=== PATIENT | female | born 1985 | race Caucasian/White ===

== ENCOUNTER 2016-08-14 18:31 | Emergency (ER) | payer OTHER ==
--- NOTE | 2016-08-14 19:14 | ED NURSING NOTES ---
Clinical Report - Nurses [facility] [address] [place] [address] 08/14/2016 18:35 Patient: DELICIA MIGUEL TRIAGE Triage time 18:47. Acuity: LEVEL 3. Chief Complaint: COUGH and "HURTS ALL OVER" (Tested pos for flu A, earlier today at [facility]. Three kids also sick. Went home and got dizzy, felt needed to be seen again). Alert. No acute distress. SEPSIS SCREEN: Sepsis Screen: negative. Negative (no infection suspected/documented). --18:53 Steph Reynolds R.N. 18:47 08/14/16. BP: 114/48. HR: 67. RR: 18. O2 saturation: 100%. Temp: 98.6 F. Pain level now: 02/08. --18:53 Steph Reynolds R.N. 18:47 08/14/16. BP: 114/48. HR: 67. RR: 18. O2 saturation: 100%. Temp: 98.6 F. Pain level now: 02/08. --18:53 Steph Reynolds R.N. Weight: 54.4 kg stated. Height/Length: 65 inches Per Patient. BMI: 20. --18:51 Steph Reynolds R.N. Medications None. --18:50 Steph Reynolds R.N. Medication/allergy information source: the patient. --18:53 Steph Reynolds R.N. Allergies Vicodin, itchy, ringing in ears . --18:50 Steph Reynolds R.N. History Arrived by private vehicle. Historian: patient and family. Accompanied by family. Primary physician (robert). This started yesterday. She has had a nasal discharge, chest congestion and fatigue. Reports muscle aches. ( cough). Treatment RESIDENTIAL APPRAISER: None. PAST MEDICAL HX: Negative. Immunizations: status is unknown. Last normal menstrual period- 5 years ago. SURGERY HX: Appendectomy. Tubal ligation. ( ablation of uturis). SOCIAL HX: Light tobacco smoker (cigarette)- less than 1/2 a pack per day. No alcohol use or drug use. FALL RISK ASSESSMENT: Fall risk assessment completed. No fall risk identified. NUTRITIONAL RISK ASSESSMENT: The nutritional risk assessment revealed no deficiencies. FUNCTIONAL ASSESSMENT: Functional assessment: no impairments noted. LEARNING NEEDS ASSESSMENT: The learning needs assessment revealed no barriers. SKIN INTEGRITY ASSESSMENT: Skin integrity risk assessment completed. No skin integrity risk identified. --18:53 Steph Reynolds R.N. Interventions ID band on patient. To room. --18:53 Steph Reynolds R.N. PHYSICAL ASSESSMENT Ambulatory to room. Patient gowned. GENERAL / NEURO / PSYCH: Alert. Oriented X 4. Appears in no acute distress. HEENT: Voice within normal limits. Mucous membranes are pink. RESPIRATORY: Respirations not labored. CVS: Capillary refill less than 2 seconds. SKIN: Skin is warm and dry. Normal skin turgor. --18:54 Steph Reynolds R.N. NURSING PROGRESS NOTES Patient gowned. Head of bed elevated. Two patient identifiers checked. Call light placed in reach. Side rails up x 1. Bed placed in lowest position. Brakes of bed on. Patient ready for evaluation. --18:54 Steph Reynolds R.N. 19:11 08/14/2016 Oxycodone-APAP (Oxycodone-Acetaminophen) PO 5/325 mg Tablets 1 tab given. Allergies verified, confirmed 5 rights and sedative warning given to the patient. --19:16 Steph Reynolds R.N. DISPOSITION / DISCHARGE 19:22. Condition at departure: improved. No learning barriers present. Discharge instructions provided and reviewed with the patient. Reviewed medication(s) side effects, precautions, dosing and course information. Prescription(s) given to the patient. Work note given. Patient verbalized understanding. Written instructions provided in Bur[place]ian. The patient was discharged home and accompanied by spouse. She left the Emergency Department ambulatory and via private vehicle. Spouse driving. Medication list reviewed and validated. --19:27 Steph Reynolds R.N. 18:47 08/14/16. BP: 114/48. HR: 67. RR: 18. O2 saturation: 100%. Temp: 98.6 F. Pain level now: 02/08. --19:27 Reynolds, Steph, R.N. Locked/Released at 08/14/2016 19:27 by Steph Reynolds R.N.
--- NOTE | 2016-08-14 19:14 | ED ORDER SUMMARY ---
..... Patient: DELICIA MIGUEL OrderSheet [facility] VisitID: [id number] [place] [address] 30y, F Registration Date/Time: 08/14/2016 ORDER SHEET Weight: 54.4 kg (stated) Allergies: Vicodin, itchy, ringing in ears GENERAL ORDERS: MEDICATION ORDERS: Oxycodone-APAP PO 5/325 mg (HIGH ALERT MEDICATION, NOW) (19:13 08/14/2016 HBivens A.R.N.P.) (19:16 Sabra R.N.) IV FLUIDS: ORDER SHEET NOTES: [Electronically signed by Steph Reynolds R.N. (19:08/14/2016)] [Electronically signed by Marina AndujarR.N.P. (20:08/14/2016)] [Electronically locked/signed by Steph Reynolds R.N. (19:08/14/2016)]
--- NOTE | 2016-08-14 19:14 | ED ORDER SUMMARY ---
..... Patient: DELICIA MIGUEL OrderSheet [facility] VisitID: [id number] [place] [address] 30y, F Registration Date/Time: 08/14/2016 ORDER SHEET Weight: 54.4 kg (stated) Allergies: Vicodin, itchy, ringing in ears GENERAL ORDERS: MEDICATION ORDERS: Oxycodone-APAP PO 5/325 mg (HIGH ALERT MEDICATION, NOW) (19:13 08/14/2016 HBivens A.R.N.P.) (19:16 Sabra R.N.) IV FLUIDS: ORDER SHEET NOTES: [Electronically signed by Steph Reynolds R.N. (19:08/14/2016)] [Electronically signed by Marina AndujarR.N.P. (20:08/14/2016)] [Electronically locked/signed by Steph Reynolds R.N. (19:08/14/2016)]
--- NOTE | 2016-08-14 19:14 | ED NURSING NOTES ---
Clinical Report - Nurses [facility] [address] [place] [address] 08/14/2016 18:35 Patient: DELICIA MIGUEL TRIAGE Triage time 18:47. Acuity: LEVEL 3. Chief Complaint: COUGH and "HURTS ALL OVER" (Tested pos for flu A, earlier today at [facility]. Three kids also sick. Went home and got dizzy, felt needed to be seen again). Alert. No acute distress. SEPSIS SCREEN: Sepsis Screen: negative. Negative (no infection suspected/documented). --18:53 Steph Reynolds R.N. 18:47 08/14/16. BP: 114/48. HR: 67. RR: 18. O2 saturation: 100%. Temp: 98.6 F. Pain level now: 02/08. --18:53 Steph Reynolds R.N. 18:47 08/14/16. BP: 114/48. HR: 67. RR: 18. O2 saturation: 100%. Temp: 98.6 F. Pain level now: 02/08. --18:53 Steph Reynolds R.N. Weight: 54.4 kg stated. Height/Length: 65 inches Per Patient. BMI: 20. --18:51 Steph Reynolds R.N. Medications None. --18:50 Steph Reynolds R.N. Medication/allergy information source: the patient. --18:53 Steph Reynolds R.N. Allergies Vicodin, itchy, ringing in ears . --18:50 Steph Reynolds R.N. History Arrived by private vehicle. Historian: patient and family. Accompanied by family. Primary physician (robert). This started yesterday. She has had a nasal discharge, chest congestion and fatigue. Reports muscle aches. ( cough). Treatment RESERVATIONS MANAGER: None. PAST MEDICAL HX: Negative. Immunizations: status is unknown. Last normal menstrual period- 5 years ago. SURGERY HX: Appendectomy. Tubal ligation. ( ablation of uturis). SOCIAL HX: Light tobacco smoker (cigarette)- less than 1/2 a pack per day. No alcohol use or drug use. FALL RISK ASSESSMENT: Fall risk assessment completed. No fall risk identified. NUTRITIONAL RISK ASSESSMENT: The nutritional risk assessment revealed no deficiencies. FUNCTIONAL ASSESSMENT: Functional assessment: no impairments noted. LEARNING NEEDS ASSESSMENT: The learning needs assessment revealed no barriers. SKIN INTEGRITY ASSESSMENT: Skin integrity risk assessment completed. No skin integrity risk identified. --18:53 Steph Reynolds R.N. Interventions ID band on patient. To room. --18:53 Steph Reynolds R.N. PHYSICAL ASSESSMENT Ambulatory to room. Patient gowned. GENERAL / NEURO / PSYCH: Alert. Oriented X 4. Appears in no acute distress. HEENT: Voice within normal limits. Mucous membranes are pink. RESPIRATORY: Respirations not labored. CVS: Capillary refill less than 2 seconds. SKIN: Skin is warm and dry. Normal skin turgor. --18:54 Steph Reynolds R.N. NURSING PROGRESS NOTES Patient gowned. Head of bed elevated. Two patient identifiers checked. Call light placed in reach. Side rails up x 1. Bed placed in lowest position. Brakes of bed on. Patient ready for evaluation. --18:54 Steph Reynolds R.N. 19:11 08/14/2016 Oxycodone-APAP (Oxycodone-Acetaminophen) PO 5/325 mg Tablets 1 tab given. Allergies verified, confirmed 5 rights and sedative warning given to the patient. --19:16 Steph Reynolds R.N. DISPOSITION / DISCHARGE 19:22. Condition at departure: improved. No learning barriers present. Discharge instructions provided and reviewed with the patient. Reviewed medication(s) side effects, precautions, dosing and course information. Prescription(s) given to the patient. Work note given. Patient verbalized understanding. Written instructions provided in Georgian. The patient was discharged home and accompanied by spouse. She left the Emergency Department ambulatory and via private vehicle. Spouse driving. Medication list reviewed and validated. --19:27 Steph Reynolds R.N. 18:47 08/14/16. BP: 114/48. HR: 67. RR: 18. O2 saturation: 100%. Temp: 98.6 F. Pain level now: 02/08. --19:27 Reynolds, Steph, R.N. Locked/Released at 08/14/2016 19:27 by Steph Reynolds R.N.
--- NOTE | 2016-08-14 19:14 | ED CLINICAL REPORT ---
Clinical Report - Physicians/Mid Levels [facility] [address] [place] [address] 08/14/2016 18:35 Patient: DELICIA MIGUEL Time Seen: 1900; initial patient contact, initial documentation, patient care assumed. Arrived- By private vehicle. Historian- patient. HISTORY OF PRESENT ILLNESS Chief Complaint: COUGH, FEVER, CHILLS, MUSCLE ACHES and "FLU". This started about 2 - 3 days ago and is still present. The illness is described as moderate. The patient has had a cough, nasal congestion, fever, muscle aches and a nasal discharge. No difficulty breathing, chest discomfort, sore throat, sinus pressure or sinus drainage. No ear pain. (c/o generalized weakness). Additional history - The patient has had contact with a sick family member. They have had similar symptoms. No recent travel. Similar symptoms previously: None. Recent medical care: The patient was seen recently at another facility in the emergency department. ( [facility], dx with flu a, says she can't go back there because the wait was 4-5 hrs and she is still hurting everywhere, they gave her tamiflu, but nothing for pain, pt asking for percocet). REVIEW OF SYSTEMS No vomiting or diarrhea. Denies current . All systems otherwise negative, except as recorded above. PAST HISTORY See nurses notes. SURGERY HX: Appendectomy. Tubal ligation. ( ablation of uturis). SOCIAL HISTORY Light tobacco smoker. Not exposed to second-hand smoke at home. No alcohol use or drug use. No recent travel. Is a local resident. FAMILY HISTORY Negative. ADDITIONAL NOTES The nursing notes have been reviewed with agreement regarding the chief complaint, HPI, ROS, PMH and patient medications and allergies. PHYSICAL EXAM Vital Signs: 08/14/2016 18:47 BP: 114/48. HR: 67. RR: 18. O2 saturation: 100%. Temp: 98.6 F. Pain level now: 7/10. Have been reviewed as normal and appear to be correct. Appearance: Alert. No acute distress. Eyes: Pupils equal, round and reactive to light. Eyes normal inspection. ENT: Ears normal. Nose normal. Pharynx normal. Uvula midline. Neck: Normal inspection. Neck supple. CVS: Normal heart rate and rhythm. Heart sounds normal. Pulses normal. Respiratory: No respiratory distress. Breath sounds normal. Abdomen: Soft and nontender. No organomegaly. Back: Normal inspection. Skin: Skin warm and dry. Normal skin color. No rash. Normal skin turgor. Extremities: Extremities exhibit normal ROM. No lower extremity edema. Neuro: Oriented X 3. No motor deficit. No sensory deficit. PROGRESS AND PROCEDURES Course of Care: pt would also like work note, states [facility] didn't give her one. Patient counseled in person regarding the patient's stable condition and diagnosis. 19:14. Differential Diagnosis: Other possible considerations: flu, viral illness, substance abuse, uri, bronchitis, pneumonia. Above considerations are based on history and physical exam. Differential diagnosis was discussed with patient. Disposition: Discharged home in good and improved condition (19:14). Condition: good and stable. CLINICAL IMPRESSION Influenza type A with upper respiratory infection. INSTRUCTIONS Alternate Tylenol (Acetaminophen) and Motrin (Ibuprofen) for fever, temperature greater than 101 degrees orally. Take according to label instructions. Do not work today, for two days. Drink plenty of fluids for the next 24 hours until better. Warnings: GENERAL WARNINGS: Return or contact your physician immediately if your condition worsens or changes unexpectedly, if not improving as expected, or if other problems arise. Specifically return if problem worsens. Prescription Medications: Percocet 5 mg/325 mg: take 1 tablet orally every 6 hours as needed for pain. Dispense five (5). No refill. Follow-up: Follow up with your doctor in about five days as needed. Call for an appointment. Summary of care provided to patient. Understanding of the discharge instructions verbalized by patient. (Electronically signed by Marina Andujar A.R.N.P. 08/14/2016 20:27)
--- NOTE | 2016-08-14 20:27 | ED DISCHARGE INSTRUCTIONS ---
Patient: PARENTDELICIA General Instructions [facility] VisitID: [id number] [place] [address] 30y, F Registration Date/Time: 08/14/2016 Influenza type A with upper respiratory infection. INSTRUCTIONS Alternate Tylenol (Acetaminophen) and Motrin (Ibuprofen) for fever, temperature greater than 101 degrees orally. Take according to label instructions. Do not work today, for two days. Drink plenty of fluids for the next 24 hours until better. Warnings: GENERAL WARNINGS: Return or contact your physician immediately if your condition worsens or changes unexpectedly, if not improving as expected, or if other problems arise. Specifically return if problem worsens. Prescription Medications: Percocet 5 mg/325 mg: take 1 tablet orally every 6 hours as needed for pain. Dispense five (5). No refill. Follow-up: Follow up with your doctor in about five days as needed. Call for an appointment. Summary of care provided to patient. Understanding of the discharge instructions verbalized by patient. ADDITIONAL INFORMATION Influenza (Adult) Influenza, also called the flu, is a viral illness that affects the air passages of the lungs. It differs from the common cold. It is highly contagious. It may be spread through the air by coughing and sneezing or by direct contact (touching the sick person and then touching your own eyes, nose or mouth). Illness starts 1-3 days after exposure and lasts for 1-2 weeks. Antibiotics are usually not needed unless a complication appears (ear or sinus infection or pneumonia). Symptoms may be mild or severe and can include extreme tiredness (wanting to stay in bed all day), chills, fevers, muscle aching, soreness with eye movement, headache, and a dry, hacking cough. Home Care: Avoid exposure to cigarette smoke (yours or others). Tylenol or ibuprofen (Advil) will help fever, muscle aching, and headache. To avoid risk of liver injury, aspirin should not be used in children and teenagers under 18 with this illness. Nausea and loss of appetite are common. A light diet is recommended. Avoid dehydration by drinking 6-8 glasses of fluids per day (water, sport drinks like Gatorade, soft drinks without caffeine, juices, tea, soup, etc.). Extra fluids will also help loosen secretions in the nose and lungs. [id number] cold medicines will not shorten the duration of the illness but may be helpful for the following symptoms: cough (Robitussin DM); sore throat (Chloraseptic lozenges or spray); nasal and sinus congestion (Actifed or Sudafed). [NOTE: Do not use decongestants if you have high blood pressure.] Stay home until your fever has been gone for at least 24 hours (without the use of fever-reducing medications such as ibuprofen). Follow Up with your doctor or as directed by our staff if you are not improving over the next week. Note: If you are age 65 or older, or if you have chronic asthma or COPD, we recommend a pneumococcal vaccinationevery five years. All adults shouldreceive a yearly influenza vaccination every . Ask your doctor about this. Get Prompt Medical Attention if any of the following occur: Cough with lots of colored sputum (mucus) or blood in your sputum Chest pain, shortness of breath, wheezing, or difficulty breathing Severe headache, face, neck or ear pain New rash Fever of 100.4F (38C) oral or higher, not better with fever medication Confusion, behavior change or seizure Severe weakness or dizziness Fever Control (Adult) A fever is a natural reaction of the body to an illness. In most cases, the temperature itself is not harmful. It actually helps the body fight infections. A fever does not need to be treated unless you feel very uncomfortable. Home Care If you feel warm, check your temperature. If you feel very uncomfortable and your temperature is at or higher than 100.4F (38C) oral, you may take acetaminophen (Tylenol) every 4 to 6 hours. If you cant take or keep down oral medicine, ask your pharmacist for Tylenol suppositories, which you can get without a prescription. If the fever does not respond to acetaminophen within 1 hour, take ibuprofen (Advil or Motrin). If this works, keep taking the ibuprofen every 6 to 8 hours. Note: If you have chronic liver or kidney disease or ever had a stomach ulcer or GI bleeding, talk with your doctor before using these medications. If either medication alone does not keep the fever down, you may alternate the two medicines every 3 to 4 hours, only if your healthcare provider has instructed you to do so. For example, take Motrin then wait 3 hours, take Tylenol then wait 3 hours, take Motrin, and so on. Follow your healthcare providers instructions exactly. Clothing: Keep clothing light because excess body heat is lost through the skin. The fever will go up if you wear extra layers or wrap in blankets. Fluids: Fever causes the body to lose water through evaporation. Drink plenty of fluids such as water, juice, clear sodas, driss champ, or lemonade. Do not use aspirin in anyone under 18 years of age who is ill with a fever. It can cause severe liver damage. Follow Up with your doctor or as advised by our staff if you do not get better after 48 hours. Get Prompt Medical Attention if any of the following occur: Fever does not get better after taking fever medication Fast or difficult breathing Earache, sinus pain, stiff or painful neck, headache, repeated diarrhea or vomiting You feel unusually irritable, drowsy, or confused A rash appears You feel weak or dizzy, or that you might faint Oxycodone Hydrochloride, Acetaminophen Oral tablet What is this medicine? ACETAMINOPHEN; OXYCODONE (a set a FIFI analisa fen; ox i KOE done) is a pain reliever. It is used to treat mild to moderate pain. How should I use this medicine? Take this medicine by mouth with a full glass of water. Follow the directions on the prescription label. Take your medicine at regular intervals. Do not take your medicine more often than directed. Talk to your electrical mechanical technician regarding the use of this medicine in children. Special care may be needed. Patients over 65 years old may have a stronger reaction and need a smaller dose. What side effects may I notice from receiving this medicine? Side effects that you should report to your doctor or health youth care professional as soon as possible: allergic reactions like skin rash, itching or hives, swelling of the face, lips, or tongue breathing difficulties, wheezing confusion light headedness or fainting spells severe stomach pain yellowing of the skin or the whites of the eyes Side effects that usually do not require medical attention (report to your doctor or health youth care professional if they continue or are bothersome): dizziness drowsiness nausea vomiting What may interact with this medicine? alcohol antihistamines barbiturates like amobarbital, butalbital, butabarbital, methohexital, pentobarbital, phenobarbital, thiopental, and secobarbital benztropine drugs for bladder problems like solifenacin, trospium, oxybutynin, tolterodine, hyoscyamine, and methscopolamine drugs for breathing problems like ipratropium and tiotropium drugs for certain stomach or intestine problems like propantheline, homatropine methylbromide, glycopyrrolate, atropine, belladonna, and dicyclomine general anesthetics like etomidate, ketamine, nitrous oxide, propofol, desflurane, enflurane, halothane, isoflurane, and sevoflurane medicines for depression, anxiety, or psychotic disturbances medicines for sleep muscle relaxants naltrexone narcotic medicines (opiates) for pain phenothiazines like perphenazine, thioridazine, chlorpromazine, mesoridazine, fluphenazine, prochlorperazine, promazine, and trifluoperazine scopolamine tramadol trihexyphenidyl What if I miss a dose? If you miss a dose, take it as soon as you can. If it is almost time for your next dose, take only that dose. Do not take double or extra doses. Where should I keep my medicine? Keep out of the reach of children. This medicine can be abused. Keep your medicine in a safe place to protect it from theft. Do not share this medicine with anyone. Selling or giving away this medicine is dangerous and against the law. Store at room temperature between 20 and 25 degrees C (68 and 77 degrees F). Keep container tightly closed. Protect from light. This medicine may cause accidental overdose and if it is taken by other adults, children, or pets. Flush any unused medicine down the toilet to reduce the chance of harm. Do not use the medicine after the expiration date. What should I tell my health care provider before I take this medicine? They need to know if you have any of these conditions: brain tumor Crohn's disease, inflammatory bowel disease, or ulcerative colitis drink more than 3 alcohol containing drinks per day drug abuse or addiction head injury heart or circulation problems kidney disease or problems going to the bathroom liver disease lung disease, asthma, or breathing problems an unusual or allergic reaction to acetaminophen, oxycodone, other opioid analgesics, other medicines, foods, dyes, or preservatives or trying to get breast-feeding What should I watch for while using this medicine? Tell your doctor or health youth care professional if your pain does not go away, if it gets worse, or if you have new or a different type of pain. You may develop tolerance to the medicine. Tolerance means that you will need a higher dose of the medication for pain relief. Tolerance is normal and is expected if you take this medicine for a long time. Do not suddenly stop taking your medicine because you may develop a severe reaction. Your body becomes used to the medicine. This does NOT mean you are addicted. Addiction is a behavior related to getting and using a drug for a non-medical reason. If you have pain, you have a medical reason to take pain medicine. Your doctor will tell you how much medicine to take. If your doctor wants you to stop the medicine, the dose will be slowly lowered over time to avoid any side effects. You may get drowsy or dizzy. Do not drive, use machinery, or do anything that needs mental alertness until you know how this medicine affects you. Do not stand or sit up quickly, especially if you are an older patient. This reduces the risk of dizzy or fainting spells. Alcohol may interfere with the effect of this medicine. Avoid alcoholic drinks. There are different types of narcotic medicines (opiates) for pain. If you take more than one type at the same time, you may have more side effects. Give your health care provider a list of all medicines you use. Your doctor will tell you how much medicine to take. Do not take more medicine than directed. Call emergency for help if you have problems breathing. The medicine will cause constipation. Try to have a bowel movement at least every 2 to 3 days. If you do not have a bowel movement for 3 days, call your doctor or health youth care professional. Do not take Tylenol (acetaminophen) or medicines that have acetaminophen with this medicine. Too much acetaminophen can be very dangerous. Many nonprescription medicines contain acetaminophen. Always read the labels carefully to avoid taking more acetaminophen. You have been given the following additional information: Influenza (Adult) Fever Control (Adult) Oxycodone Hydrochloride, Acetaminophen Oral tablet Do not work today, for two days. (Electronically signed by Marina Andujar A.R.N.P. 08/14/2016 20:27)
--- NOTE | 2016-08-14 20:27 | ED MAR SUMMARY ---
..... Medication Administration Record [facility] [address] [place] [address] Patient: DELICIA MIGUEL Visit ID: [id number] 30y, F Weight: 54.4 kg Height/Length: 65 in BMI: 20 ALLERGIES: Vicodin, itchy, ringing in ears Given 19:11 08/14/2016 Steph Reynolds R.N. Medication Administered: OXYCODONE-APAP [PO] (OXYCODONE-ACETAMINOPHEN), Dose: 1 tab 5/325 mg Tablets PO. Medication Ordered: Oxycodone-APAP PO 5/325 mg (HIGH ALERT MEDICATION, NOW).
--- NOTE | 2016-08-14 20:27 | ED MED RECONCILIATION SUMMARY ---
Patient: PARENTDELICIA Medication Reconciliation Report [facility] VisitID: [id number] [place] [address] 30y, F Registration Date/Time: 08/14/2016 Weight: 54.4 kg Height/Length: 65 in. BMI: 20.0 ALLERGIES: Vicodin, itchy, ringing in ears The patient's Home Medications are listed below: NONE. The source(s) of the original Home Medication information: patient The following Medications were given to the patient in the Emergency Department: Oxycodone-APAP [PO] PO 1 tab, administered: 08/14/2016 7:11:00 PM The following Medications were prescribed to the patient: Percocet 5 mg/325 mg: take 1 tablet orally every 6 hours as needed for pain. Dispense five (5). No refill. -- Marina Andujar A.R.N.P.
--- NOTE | 2016-08-14 20:27 | ED MED RECONCILIATION SUMMARY ---
Patient: PARENTDELICIA Medication Reconciliation Report [facility] VisitID: [id number] [place] [address] 30y, F Registration Date/Time: 08/14/2016 Weight: 54.4 kg Height/Length: 65 in. BMI: 20.0 ALLERGIES: Vicodin, itchy, ringing in ears The patient's Home Medications are listed below: NONE. The source(s) of the original Home Medication information: patient The following Medications were given to the patient in the Emergency Department: Oxycodone-APAP [PO] PO 1 tab, administered: 08/14/2016 7:11:00 PM The following Medications were prescribed to the patient: Percocet 5 mg/325 mg: take 1 tablet orally every 6 hours as needed for pain. Dispense five (5). No refill. -- Marina Andujar A.R.N.P.
--- NOTE | 2016-08-14 20:27 | ED MAR SUMMARY ---
..... Medication Administration Record [facility] [address] [place] [address] Patient: DELICIA MIGUEL Visit ID: [id number] 30y, F Weight: 54.4 kg Height/Length: 65 in BMI: 20 ALLERGIES: Vicodin, itchy, ringing in ears Given 19:11 08/14/2016 Steph Reynolds R.N. Medication Administered: OXYCODONE-APAP [PO] (OXYCODONE-ACETAMINOPHEN), Dose: 1 tab 5/325 mg Tablets PO. Medication Ordered: Oxycodone-APAP PO 5/325 mg (HIGH ALERT MEDICATION, NOW).
== END 2016-08-14 19:22 | disposition home or self-care (01) ==
LOC: ED SRH 18:31
DX: J11.1 Influenza due to unidentified influenza virus with other respiratory manifestations (principal); F17.210 Nicotine dependence, cigarettes, uncomplicated; Z88.5 Allergy status to narcotic agent